=== PATIENT | female | born 1985 | race Caucasian/White ===

== ENCOUNTER 2016-11-09 09:37 | Inpatient (IN) | payer BC ==
[2016-11-09] MEDS ORDERED: METOCLOPRAMIDE 10 MG/2 ML VIAL IVP ONE (09:58)
[2016-11-09] MEDS ORDERED: NS 1,000 ML IV ONE (09:58)
[2016-11-09] MEDS ORDERED: KETOROLAC 30 MG/1 ML SDV IVP ONE (09:58)
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
[2016-11-09 10:16] LABS: % IMMATURE GRANULYOCYTES 0.8 % (0.0-1.1); ABSOLUTE IMMATURE GRANULOCYTES 0.18 10^3/uL (0.00-0.10); ADD DIFF? NO; ADD MORPH? NO; ADD SCAN? YES; ATYPICAL LYMPHOCYTE FLAG 0 (0-99); FRAGMENT RBC FLAG 0 (0-99); HEMATOCRIT 36.4 % (38.0-47.0); HEMOGLOBIN 12.4 g/dL (12.6-16.3); LEFT SHIFT FLG 40 (0-99); LIPEMIA HEMOLYSIS FLAG 90 (0-99); MEAN CELL HEMOGLOBIN 31.6 pg (27.9-34.1); MEAN CELL HEMOGLOBIN CONCENTR. 34.1 g/dL (32.4-36.7); MEAN CELL VOLUME 92.6 fL (81.5-99.8); MEAN PLATELET VOLUME 9.6 fL (8.7-11.7); PLATELET CLUMPS FLAG 20 (0-99); PLATELET COUNT 298 10^3/uL (150-400); RED BLOOD CELL COUNT 3.93 10^6/uL (4.18-5.33); RED CELL DISTRIBUTION WIDTH 13.8 % (11.5-15.2)
[2016-11-09 10:27] LABS: ANION GAP 17 mEq/L (8-16); CALCIUM 9.1 mg/dL (8.5-10.4); CARBON DIOXIDE 18 mEq/l (22-31); CHLORIDE 102 mEq/L (97-110); CREATININE 0.6 mg/dL (0.6-1.0); GLOMERULAR FILTRATION RATE > 60; GLUCOSE 109 mg/dL (70-100); POTASSIUM 4.2 mEq/L (3.5-5.2); SODIUM 137 mEq/L (134-144)
[2016-11-09 10:58] LABS: SCAN POSITIVE
[2016-11-09 11:03] LABS: PLATELET ESTIMATE ADEQUATE (ADEQ)
[2016-11-09] MEDS ORDERED: HYDROmorphONE/DILAUDID 1 MG/ML SYR IVP ONE (11:06)
[2016-11-09 12:39] LABS: CSF APPEARANCE CLOUDY (CLEAR)
[2016-11-09 12:39] LABS: CSF APPEARANCE CLOUDY (CLEAR)
[2016-11-09] MEDS ORDERED: cefTRIAXone 2 GM in D5W 50 ML IV ONE (12:41)
[2016-11-09 12:54] LABS: PROTEIN, CSF 234 mg/dL (12-60)
[2016-11-09 13:02] LABS: WBC, CSF 2259 /mm3 (0-5)
[2016-11-09] MEDS ORDERED: DEXAMETHASONE 10 MG/ML VIAL IVP ONE (13:13)
[2016-11-09 13:14] LABS: WBC, CSF 906 /mm3 (0-5)
[2016-11-09 13:22] LABS: CSF SUPERNATANT COLORLESS (COLORLESS)
[2016-11-09 13:22] LABS: CSF SUPERNATANT COLORLESS (COLORLESS)
[2016-11-09] MEDS ORDERED: ACETAMINOPHEN 325 MG TAB PO PRN (14:29)
[2016-11-09] MEDS ORDERED: ONDANSETRON DISINTEGRATING 4 MG TAB PO PRN (14:29)
[2016-11-09] MEDS ORDERED: ONDANSETRON 4 MG/2 ML VIAL IVP PRN (14:29)
[2016-11-09] MEDS ORDERED: VANCOMYCIN HCL/NORMAL SALINE 250 ML IV ONE (15:00)
[2016-11-09] MEDS ORDERED: VANCOMYCIN 1 GM/NS 250 ML BAG IV ONE (15:15)
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
[2016-11-09] MEDS: PROMETHAZINE HCL 25 MG/ML INJ IVP PRN (18:31)
[2016-11-09] MEDS: DEXAMETHASONE 4 MG/ML VIAL IVP SCH (18:31)
[2016-11-09] MEDS ORDERED: HALOPERIDOL LACT 5 MG/ML INJ IV ONE (20:45)
[2016-11-10] MEDS ORDERED: HALOPERIDOL LACT 5 MG/ML INJ IV ONE (01:00)
[2016-11-10] MEDS: cefTRIAXone 2 GM in D5W 50 ML IV SCH ×2 (01:08→13:58)
[2016-11-10] MEDS: DEXAMETHASONE 4 MG/ML VIAL IVP SCH ×5 (01:08→23:43)
[2016-11-10] MEDS: NS 1,000 ML IV SCH ×2 (01:09→03:43)
[2016-11-10] MEDS: VANCOMYCIN HCL/NORMAL SALINE 250 ML IV SCH ×2 (03:21→16:00)
[2016-11-10] MEDS: HYDROmorphONE/DILAUDID 1 MG/ML SYR IVP PRN ×5 (03:39→23:43)
--- NOTE | 2016-11-10 05:12 | CPEKG ---
Heart Rate: 59 RR Interval: 1017 P-R Interval: 172 QRSD Interval: 94 QT Interval: 420 QTC Interval: 416 P [place]: 60 QRS [place]: 92 T Wave [place]: -51 EKG Severity - ABNORMAL ECG - EKG Impression: SINUS ARRHYTHMIA, RATE 43-66 EKG Impression: BORDERLINE RIGHT AXIS DEVIATION EKG Impression: NONSPECIFIC T ABNORMALITIES, INFERIOR LEADS EKG Impression: . Electronically Signed By: Dominguez Hankins 10-Nov-2016 05:47:43
[2016-11-10 06:55] LABS: % IMMATURE GRANULYOCYTES 0.8 % (0.0-1.1); ADD DIFF? NO; ADD MORPH? NO; ADD SCAN? YES; ATYPICAL LYMPHOCYTE FLAG 0 (0-99); FRAGMENT RBC FLAG 0 (0-99); HEMATOCRIT 33.3 % (38.0-47.0); HEMOGLOBIN 11.4 g/dL (12.6-16.3); LIPEMIA HEMOLYSIS FLAG 90 (0-99); MEAN CELL HEMOGLOBIN 31.1 pg (27.9-34.1); MEAN CELL HEMOGLOBIN CONCENTR. 34.2 g/dL (32.4-36.7); PLATELET CLUMPS FLAG 0 (0-99); PLATELET COUNT 240 10^3/uL (150-400); RED BLOOD CELL COUNT 3.66 10^6/uL (4.18-5.33); RED CELL DISTRIBUTION WIDTH 13.5 % (11.5-15.2)
[2016-11-10 07:01] LABS: LEFT SHIFT FLG 140 (0-99)
[2016-11-10 07:05] LABS: ANION GAP 11 mEq/L (8-16); CALCIUM 7.9 mg/dL (8.5-10.4); CARBON DIOXIDE 20 mEq/l (22-31); CHLORIDE 104 mEq/L (97-110); CREATININE 0.4 mg/dL (0.6-1.0); GLOMERULAR FILTRATION RATE > 60; GLUCOSE 130 mg/dL (70-100); POTASSIUM 3.5 mEq/L (3.5-5.2); SODIUM 135 mEq/L (134-144)
[2016-11-10 07:56] LABS: SCAN POSITIVE
[2016-11-10 07:59] LABS: PLATELET ESTIMATE ADEQUATE (ADEQ)
[2016-11-10 09:07] LABS: ALBUMIN 3.5 g/dL (3.5-5.0); BILIRUBIN,TOTAL 0.4 mg/dL (0.1-1.4); BILIRUBIN-CONJUGATED 0.4 mg/dL (0.0-0.5); TOTAL PROTEIN 6.1 g/dL (6.3-8.2)
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
[2016-11-10] MEDS: ENOXAPARIN 40 MG/0.4 ML SYR SC SCH (09:28)
--- NOTE | 2016-11-10 09:45 | HOSPPROG ---
Hospitalist Progress Note Assessment/Plan: 31 yo F w asplenia here w pneumococcal meningitis meningitis: continue vanc.ceftriaxone (2g q 12) suspect will be ceftriaxone sens; can dc droplet precautions as not meningococcus aplenia: needs vaccines timing per ID bacteremia: source is meningitis repeat cx today proph: lmwh encephalopathy: attributable to meningitis dispo: inpt risk: high Subjective: case d/w rosario olguin and krishna. remains encephalopathic. some purposeful movement Objective: Vital Signs Temp Pulse Resp BP Pulse Ox 37 C 54 L 18 100/66 98 11/10/16 08:00 11/10/16 08:00 11/10/16 08:00 11/10/16 08:00 11/10/16 08:00 Laboratory Results 11/10/16 06:40 11/10/16 06:40 11/09/16 11/10/16 11/11/16 05:59 05:59 05:59 Intake Total 2866 Output Total 1675 Balance 1191 - Physical Exam Constitutional: no apparent distress, other (not following commands) Eyes: PERRL, anicteric sclera Ears, Nose, Mouth, Throat: moist mucous membranes, hearing normal Cardiovascular: regular rate and rhythym, no murmur, rub, or gallop Respiratory: no respiratory distress, no rales or rhonchi Gastrointestinal: normoactive bowel sounds, soft, non-tender abdomen Genitourinary: no bladder fullness, no renal bruits Skin: warm, normal color Musculoskeletal: full muscle strength Neurologic: other (encephalopathic. withdraws to pain), No AAOx3 Psychiatric: interacting appropriately, not anxious ICD10 Worksheet Patient Problems: Problems Problem Status Onset Meningitis Acute (normal spontaneous vaginal delivery) Acute Rubella non-immune status Acute
[2016-11-10] MEDS: PROMETHAZINE HCL 25 MG/ML INJ IVP PRN (10:38)
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
[2016-11-10] MEDS ORDERED: cefTRIAXone 2 GM in D5W 50 ML IV SCH (22:00)
[2016-11-11] MEDS: cefTRIAXone 2 GM in D5W 50 ML IV SCH ×2 (01:10→13:21)
[2016-11-11] MEDS: VANCOMYCIN HCL/NORMAL SALINE 250 ML IV SCH (03:37)
[2016-11-11] MEDS: DEXAMETHASONE 4 MG/ML VIAL IVP SCH ×4 (05:47→23:40)
[2016-11-11 06:33] LABS: % IMMATURE GRANULYOCYTES 1.1 % (0.0-1.1); ABSOLUTE IMMATURE GRANULOCYTES 0.22 10^3/uL (0.00-0.10); ABSOLUTE NRBC COUNT 0.02 10^3/uL (0-0.01); ADD DIFF? NO; ADD MORPH? NO; ADD SCAN? NO; ATYPICAL LYMPHOCYTE FLAG 10 (0-99); FRAGMENT RBC FLAG 0 (0-99); HEMATOCRIT 32.7 % (38.0-47.0); HEMOGLOBIN 11.1 g/dL (12.6-16.3); LEFT SHIFT FLG 20 (0-99); LIPEMIA HEMOLYSIS FLAG 90 (0-99); MEAN CELL HEMOGLOBIN 30.8 pg (27.9-34.1); MEAN CELL HEMOGLOBIN CONCENTR. 33.9 g/dL (32.4-36.7); MEAN CELL VOLUME 90.8 fL (81.5-99.8); MEAN PLATELET VOLUME 10.6 fL (8.7-11.7); NRBC-AUTO% 0.1 % (0.0-0.2); PLATELET CLUMPS FLAG 0 (0-99); PLATELET COUNT 277 10^3/uL (150-400); RED CELL DISTRIBUTION WIDTH 14.1 % (11.5-15.2)
[2016-11-11 07:02] LABS: ANION GAP 9 mEq/L (8-16); CALCIUM 8.4 mg/dL (8.5-10.4); CARBON DIOXIDE 20 mEq/l (22-31); CHLORIDE 108 mEq/L (97-110); CREATININE 0.5 mg/dL (0.6-1.0); GLOMERULAR FILTRATION RATE > 60; GLUCOSE 121 mg/dL (70-100); POTASSIUM 3.8 mEq/L (3.5-5.2); SODIUM 137 mEq/L (134-144)
[2016-11-11] MEDS: ENOXAPARIN 40 MG/0.4 ML SYR SC SCH (08:58)
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
--- NOTE | 2016-11-11 09:24 | HOSPPROG ---
Hospitalist Progress Note Assessment/Plan: 31 yo F w asplenia here w pneumococcal meningitis meningitis: continue vanc.ceftriaxone (2g q 12) ceftriaxone sens, pcn resistant strep pneumo dc vanc can dc droplet precautions as not meningococcus clinically improved today aplenia: needs vaccines timing per ID bacteremia: source is meningitis repeat cx neg thus far likely picc 11/12 4 weeks abx proph: lmwh encephalopathy: attributable to meningitis dispo: inpt risk: high Subjective: case d/w dr keller. alert today Objective: Vital Signs Temp Pulse Resp BP Pulse Ox 36.8 C 54 L 15 106/70 97 11/11/16 08:00 11/11/16 08:00 11/11/16 08:00 11/11/16 07:00 11/11/16 08:00 Laboratory Results 11/11/16 05:45 11/11/16 05:45 11/10/16 11/11/16 11/12/16 05:59 05:59 05:59 Intake Total 2866 2197 Output Total 1675 1650 Balance 1191 547 - Physical Exam Constitutional: no apparent distress, appears nourished Eyes: PERRL, anicteric sclera Ears, Nose, Mouth, Throat: moist mucous membranes, hearing normal Cardiovascular: regular rate and rhythym, no murmur, rub, or gallop Respiratory: no respiratory distress, no rales or rhonchi, clear to auscultation Gastrointestinal: normoactive bowel sounds, soft, non-tender abdomen Genitourinary: no bladder fullness, No quinn in urethra Skin: warm, normal color Musculoskeletal: full muscle strength, no muscle tenderness Neurologic: AAOx3, sensation intact bilaterally Psychiatric: interacting appropriately, not anxious Lymph, Heme, Immunologic: no cervical LAD, no supraclavicular LAD ICD10 Worksheet Patient Problems: Problems Problem Status Onset Meningitis Acute (normal spontaneous vaginal delivery) Acute Rubella non-immune status Acute
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
[2016-11-11] MEDS: HYDROmorphONE/DILAUDID 1 MG/ML SYR IVP PRN (13:38)
[2016-11-11] MEDS: NS 1,000 ML IV SCH ×2 (15:30→19:58)
[2016-11-12] MEDS: cefTRIAXone 2 GM in D5W 50 ML IV SCH ×2 (01:18→14:07)
[2016-11-12 05:01] LABS: % IMMATURE GRANULYOCYTES 2.2 % (0.0-1.1); ABSOLUTE IMMATURE GRANULOCYTES 0.26 10^3/uL (0.00-0.10); ABSOLUTE NRBC COUNT 0.05 10^3/uL (0-0.01); ADD DIFF? NO; ADD MORPH? NO; ADD SCAN? NO; ATYPICAL LYMPHOCYTE FLAG 20 (0-99); FRAGMENT RBC FLAG 10 (0-99); HEMATOCRIT 32.3 % (38.0-47.0); HEMOGLOBIN 10.9 g/dL (12.6-16.3); LEFT SHIFT FLG 20 (0-99); LIPEMIA HEMOLYSIS FLAG 80 (0-99); MEAN CELL HEMOGLOBIN 30.7 pg (27.9-34.1); MEAN CELL HEMOGLOBIN CONCENTR. 33.7 g/dL (32.4-36.7); MEAN PLATELET VOLUME 10.7 fL (8.7-11.7); NRBC-AUTO% 0.4 % (0.0-0.2); PLATELET CLUMPS FLAG 10 (0-99); PLATELET COUNT 320 10^3/uL (150-400); RED BLOOD CELL COUNT 3.55 10^6/uL (4.18-5.33); RED CELL DISTRIBUTION WIDTH 14.1 % (11.5-15.2)
[2016-11-12 05:18] LABS: CHLORIDE 110 mEq/L (97-110)
[2016-11-12 05:20] LABS: ANION GAP 8 mEq/L (8-16); CALCIUM 8.3 mg/dL (8.5-10.4); CARBON DIOXIDE 21 mEq/l (22-31); CREATININE 0.5 mg/dL (0.6-1.0); GLOMERULAR FILTRATION RATE > 60; GLUCOSE 136 mg/dL (70-100); SODIUM 139 mEq/L (134-144)
[2016-11-12] MEDS: DEXAMETHASONE 4 MG/ML VIAL IVP SCH ×3 (05:23→18:20)
[2016-11-12] MEDS ORDERED: ALTEPLASE 2 MG VIAL IVP PRN (08:58)
--- NOTE | 2016-11-12 09:04 | HOSPPROG ---
Hospitalist Progress Note Assessment/Plan: 31 yo F w asplenia here w pneumococcal meningitis meningitis: continue vanc.ceftriaxone (2g q 12) ceftriaxone sens, pcn resistant strep pneumo dc vanc can dc droplet precautions as not meningococcus clinically improved today dc steroids after 4 days, which will be mid day 11/13 aplenia: needs vaccines timing per ID CN paalsy: neuro to see bacteremia: source is meningitis repeat cx neg thus far likely picc 11/12 14 days abx proph: lmwh encephalopathy: attributable to meningitis dispo: inpt risk: high Subjective: case d/w dr keller. new R CN palsy w double vision Objective: Vital Signs Temp Pulse Resp BP Pulse Ox 36.7 C 54 L 16 104/70 95 11/12/16 08:00 11/12/16 08:00 11/12/16 08:00 11/12/16 08:00 11/12/16 08:00 Laboratory Results 11/12/16 04:51 11/12/16 04:51 11/11/16 11/12/16 11/13/16 05:59 05:59 05:59 Intake Total 2197 3125 Output Total 1650 2750 Balance 547 375 - Physical Exam Constitutional: no apparent distress, appears nourished Eyes: PERRL, anicteric sclera Ears, Nose, Mouth, Throat: moist mucous membranes, hearing normal Cardiovascular: regular rate and rhythym, no murmur, rub, or gallop Respiratory: no respiratory distress, no rales or rhonchi Gastrointestinal: normoactive bowel sounds, soft, non-tender abdomen Genitourinary: quinn in urethra Skin: warm, normal color Musculoskeletal: full muscle strength, no muscle tenderness Neurologic: AAOx3, sensation intact bilaterally Psychiatric: interacting appropriately, not anxious Lymph, Heme, Immunologic: no cervical LAD ICD10 Worksheet Patient Problems: Problems Problem Status Onset Meningitis Acute (normal spontaneous vaginal delivery) Acute Rubella non-immune status Acute
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
[2016-11-12] MEDS: ENOXAPARIN 40 MG/0.4 ML SYR SC SCH ×2 (09:38→09:47)
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
[2016-11-12] MEDS ORDERED: GADOBUTROL 10 ML VIAL IVP ONE (16:14)
--- NOTE | 2016-11-12 19:14 | NEUROPROG ---
Assessment: MRI showed probable stroke to explain her vision issues. I ordered stroke evaluation but will hold on beginning aspirin to ensure her stroke mechanism is not from endocarditis (pt with infection, aspirin does not need to be started if endocarditis is the mechanism of stroke). Objective: Vital Signs Temp Pulse Resp BP Pulse Ox 36.5 C 40 L 14 121/70 H 96 11/12/16 19:00 11/12/16 19:00 11/12/16 19:00 11/12/16 19:00 11/12/16 19:00 Laboratory Results 11/12/16 04:51 11/12/16 04:51 11/11/16 11/12/16 11/13/16 05:59 05:59 05:59 Intake Total 2197 3125 Output Total 1650 2640 Balance 547 375 Allergies/Adverse Reactions: codeine Allergy (Mild, Verified 11/09/16 09:45) GI upset
[2016-11-12] MEDS ORDERED: IOPAMIDOL (ISOVUE 370) 100 ML BTL IV ONE (19:43)
[2016-11-13] MEDS: cefTRIAXone 2 GM in D5W 50 ML IV SCH ×2 (00:12→14:04)
[2016-11-13] MEDS: DEXAMETHASONE 4 MG/ML VIAL IVP SCH ×3 (00:12→11:43)
[2016-11-13 02:30] LABS: HEMOGLOBIN A1C 5.3 % (4.0-6.0)
[2016-11-13 07:26] LABS: CHOLESTEROL 164 mg/dL (140-200); CHOLESTEROL/HDL RATIO 4.43 RATIO (1.00-4.44); HIGH DENSITY LIPOPROTEIN 37 mg/dL (40-80); LDL/HDL RATIO 2.84 RATIO (1.00-3.22); LOW DENSITY LIPOPROTEIN 105 mg/dL (70-100); NON-HIGH DENSITY LIPOPROTEIN 127 mg/dL (90-129); TRIGLYCERIDE 111 mg/dL (35-135); VERY LOW DENSITY LIPOPROTEINS 22 mg/dL (8-25)
[2016-11-13] MEDS: ENOXAPARIN 40 MG/0.4 ML SYR SC SCH (10:24)
--- NOTE | 2016-11-13 13:12 | NEUROPROG ---
Assessment: INTERVAL HISTORY: Patient doing well. Double vision resolved. Still with mild holocranial headache. A little unsteady with walking still. No new symptoms, including weakness, sensory changes, speech/language disturbance, neck pain, photophobia. Eager to go home. EXAM: VS reviewed in EMR NECK: supple, nontender, no meningismus MS: awake, alert, oriented to all spheres. Speech nondysarthric. No language disturbance. Follows commands. Attends to both sides. Memory grossly intact. Good fund of knowledge. Mood euthymic. CN: pupils 5mm round reactive. VFF. Primary gaze centered. Full ocular motility. No skew. Facial sensation preserved. Face symmetric. Palatoglossal movements intact. Shoulder shrug strong. MOTOR: reduced bulk throughout, normal tone. No adventitial movements. Full power throughout. SENSORY: intact LT/PP throughout and symmetric wo extinction. COORD: no ataxia FN/HS. Jin preserved. REFLEX: plantars down, no clonus. DTRs 2/4. GAIT: deferred to PT safety eval DATA: Labs, imaging and physiologic data reviewed in EMR IMPRESSION AND RECOMMENDATIONS: // BACTERIAL MENINGITIS - IMPROVING // SEPSIS // ISCHEMIC STROKES - VASCULITIC FROM INFECTION // DIPLOPIA - RESOLVED Patient with CSF culture demonstrated Strep. pneumo meningitis with blood cultures positive for Strep. pneumo as well. On appropriate antibiotic therapy as directed by our ID colleagues. Also on steroids. Diplopia likely from cranial neuropathy from meningeal irritation. Strokes are juxtacortical and cerebellar in the left hemisphere. Vascular imaging in the form of CTA head/neck show no vascular caliber changes. MRI did not show enhancement of vascular lumen or the lesions. Location and size of stroke and clinical syndrome are compelling for vasculitic infarcts from infection/inflammation of the leptomeningeal vessels. Still needs TTE to screen for septic valvular vegetation, though, particularly given positive blood cultures - therapy is still going to be antibiotics and steroids, but may change duration of therapy. Would continue steroids for duration of antibiotic therapy as a measure to dampen inflammation that was likely culprit in vasculitic infarcts. She is otherwise doing very well. She does not need antithrombotic, statin, etc... given the infarcts were from an infectious etiology, which is being addressed as per above. Discussed notifying staff of any new deficits. Will sign off. Please notify of any clinical changes or concerns. 45 mins CC time. Patient with vasculitic infarcts and meningitis/sepsis - improving, though, still under investigation and close clinical monitoring. Objective: Vital Signs Temp Pulse Resp BP Pulse Ox 36.7 C 40 L 14 107/65 96 11/13/16 05:55 11/13/16 05:55 11/13/16 05:55 11/13/16 05:55 11/13/16 05:55 Laboratory Results 11/12/16 04:51 11/12/16 04:51 11/12/16 11/13/16 11/14/16 05:59 05:59 05:59 Intake Total 3125 55 Output Total 2750 Balance 375 55 Allergies/Adverse Reactions: codeine Allergy (Mild, Verified 11/09/16 09:45) GI upset
--- NOTE | 2016-11-13 13:42 | HOSPPROG ---
Hospitalist Progress Note Assessment/Plan: 31 yo F w asplenia here w pneumococcal meningitis meningitis: continue vanc.ceftriaxone (2g q 12) ceftriaxone sens, pcn resistant strep pneumo dc vanc can dc droplet precautions as not meningococcus clinically improved today dc steroids after 4 days, which will be mid day 11/13 aplenia: needs vaccines timing per ID CN palsy: resolved felt secondary to CN irritation lacunar infarcts: most likely vasculitic infarcts but need to rule out valve vegetation as source of embolism bacteremia: source is meningitis repeat cx neg thus far likely picc 11/12 14 days abx unless found to have SBE proph: lmwh encephalopathy: attributable to meningitis dispo: inpt risk: high Subjective: case d/w dr sosa. diplopia resolved. MRI w lacunar infarcts ; neurovascular imaging w no evidence large vessel atherosclerotic disease Objective: Vital Signs Temp Pulse Resp BP Pulse Ox 36.7 C 40 L 14 107/65 96 11/13/16 05:55 11/13/16 05:55 11/13/16 05:55 11/13/16 05:55 11/13/16 05:55 Laboratory Results 11/12/16 04:51 11/12/16 04:51 11/12/16 11/13/16 11/14/16 05:59 05:59 05:59 Intake Total 3125 55 Output Total 2750 Balance 375 55 - Physical Exam Constitutional: no apparent distress, appears nourished Eyes: PERRL, anicteric sclera Ears, Nose, Mouth, Throat: moist mucous membranes, hearing normal Cardiovascular: regular rate and rhythym, no murmur, rub, or gallop Respiratory: no respiratory distress, no rales or rhonchi Gastrointestinal: normoactive bowel sounds, soft, non-tender abdomen Genitourinary: no bladder fullness, No quinn in urethra Skin: warm, normal color Musculoskeletal: full muscle strength, no muscle tenderness Neurologic: AAOx3 ICD10 Worksheet Patient Problems: Problems Problem Status Onset Meningitis Acute (normal spontaneous vaginal delivery) Acute Rubella non-immune status Acute
--- NOTE | 2016-11-13 14:44 | ECHO ---
[id number] + + [address] : : [place] [address] : : [phone] + + Adult Echocardiographic Report + -------+ :Name: Елена KRAUSthad Date: 11/13/2016 08:08 AM : : Hospital Admission Number: [id number] Locati on: 396: :: 1985 Gender: Female Height: 63 in : :Age: 31 yrs Race: WH Weight: 110 lb : :Reason For Study: Ischemic storke : : BSA: 1.5 meter s2 : + -------+ MMode/2D Measurements \T\ Calculations IVSd: 0.55 cm LVIDd: 5.0 cm FS: 44.6 % Ao root diam: LVPWd: 0.77 cm LVIDs: 2.8 cm EDV(Teich): 2.8 cm 120.9 ml LA dimension: ESV(Teich): 3.2 cm 29.5 ml EF(Teich): 75.6 % LVLd ap4: 7.8 cm SV(MOD-sp4): EDV(MOD-sp4): 67.0 ml 92.0 ml LVLs ap4: 5.8 cm ESV(MOD-sp4): 25.0 ml EF(MOD-sp4): 72.8 % Normal Measurement Values: + + :LVIDd (3.5-5.7cm) IVSd (0.6-1.1cm) LVPWd (0.6-1.1cm) Aortic Root (2.0-3.7cm)Left Atrium (1.5-4.0cm): :LV Vol(d) (76-115ml) LV Vol(s) (29-48ml) Ejec Fraction (50-65%)PV Juan J (0.6- 1.2m/s) TV Juan J (0.4-1.0m/s) : :MV E Juan J (0.8-1.0m/s)MV A Juan J (0.3-1.0m/s)LVOT Juan J (0.7-1.2m/s) Asc Ao Juan J ( 0.9-1.8m/s) : + + Doppler Measurements \T\ Calculations MV E max juan j: 150.1 cm/sec Ao V2 max: 133.0 cm/sec TR max juan j: 213.1 cm/sec MV A max juan j: 49.9 cm/sec Ao max P.1 mmHg TR max P.2 mmHg MV E/A: 3.0 RAP systole: 5.0 mmHg RVSP(TR): 23.2 mmHg Left Ventricle The left ventricle is normal in size. There is normal left ventricular wall thickness. Left ventricular systolic function is normal. Ejection Fraction = 65-70%. No regional wall motion abnormalities noted. Right Ventricle The right ventricle is normal in size and function. Atria The left atrial size is normal. Right atrial size is normal. Injection of contrast documented no interatrial shunt. Mitral Valve The mitral valve is normal in structure and function. There is no evidence of mitral valve prolapse. There is no mitral valve stenosis. There is trace mitral regurgitation. Tricuspid Valve Normal tricuspid valve. There is mild tricuspid regurgitation. Right ventricular systolic pressure is normal. Aortic Valve The aortic valve is trileaflet. The aortic valve opens well. There is no aortic stenosis. There is no aortic insufficiency. Pulmonic Valve The pulmonic valve is normal in structure and function. Trace pulmonic valvular regurgitation. Great Vessels The aortic root is normal size. Pericardium/Pleural There is no pericardial effusion. Conclusion A complete two-dimensional transthoracic echocardiogram was performed (2D, M-mode, Doppler and color flow Doppler). Normal LV size and wall motion. Left ventricular systolic function is normal. Ejection Fraction = 65-70%. Injection of contrast documented no interatrial shunt. There is trace mitral regurgitation. There is mild tricuspid regurgitation. Right ventricular systolic pressure is normal. Trace pulmonic valvular regurgitation. Final Reading Physician: Eloina Roberson signed on 11/13/2016 02:42 PM Ordering Physician: Robi Byers Performed By: Dayan Hinton, [facility]
--- NOTE | 2016-11-13 16:13 | PDIAF ---
- Diagnosis Diagnosis: meningitis Code Status: Full Code - Medication Management Discharge Medications: Medications to Continue on Transfer Acetaminophen [Tylenol 325mg (*)] 650 mg PO Q6 PRN 11/09/16 [Last Taken Unknown] cefTRIAXone [Rocephin] 2 gm IV Q12H vial 11/13/16 [Last Taken Unknown] Discharge Medications: Refer to the Discharge Home Medication list for PRN reason. - Orders Services needed: Home Care, Registered Nurse Home Care Face to Face: I certify that this patient was under my care and that I had the required [id number] encounter meeting the encounter requirements on the discharge day. My findings support the fact that the patient is homebound as defined in CMS Chapter 7 Medicare Benefits Manual 30.1.1, The condition of the patient is such that there exists a normal inability to leave home and consequently, leaving home would require a considerable and taxing effort. - Follow Up Care Current Providers and Referrals: NONE *PRIMARY CARE P,. [Unknown] - As per Instructions
--- NOTE | 2016-11-13 16:19 | PDIAF ---
- Diagnosis Diagnosis: meningitis Code Status: Full Code - Medication Management Discharge Medications: Medications to Continue on Transfer Acetaminophen [Tylenol 325mg (*)] 650 mg PO Q6 PRN 11/09/16 [Last Taken Unknown] cefTRIAXone [Rocephin] 2 gm IV Q12H vial 11/13/16 [Last Taken Unknown] Alf Antibiotics: Ceftriaxone 2 g IV q12 hours [employer]st Antibiotic Stop Date: 11/24/16 Discharge Medications: Refer to the Discharge Home Medication list for PRN reason. PICC Care - Routine: Yes - Orders Services needed: Home Care, Registered Nurse Home Care Face to Face: I certify that this patient was under my care and that I had the required [id number] encounter meeting the encounter requirements on the discharge day. My findings support the fact that the patient is homebound as defined in CMS Chapter 7 Medicare Benefits Manual 30.1.1, The condition of the patient is such that there exists a normal inability to leave home and consequently, leaving home would require a considerable and taxing effort. - Labs/Radiology CBC Date: 11/15/16 (weekly q Wed) CMP Date: 11/15/16 (weekly q Wed) Call or Fax Lab and Imaging Results to: Dr. Cesar [phone] - Follow Up Care Current Providers and Referrals: NONE *PRIMARY CARE P,. [Unknown] - As per Instructions Vicky Cesar MD [Medical Doctor] - 11/22/16 11:00 am
--- NOTE | 2016-11-13 16:31 | GDS ---
[f rep st] DISCHARGE SUMMARY DISCHARGE DIAGNOSES: 1. Pneumococcal meningitis. 2. Pneumococcal bacteremia. 3. Asplenia. 4. 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 CONSULT: 1. Infectious Disease. 2. Neurology. HOSPITAL COURSE: Please see admission history and physical by Dr. Anupam Vasquez. The patient pres ented with fever, myalgias. She had an LP which showed leukocytosis left shift, low glucose, high p rotein consistent with meningitis. Gram stain showed gram-positive cocci in pairs consist with pneu mococcus. She was initially treated with multiple drug regimens but ultimately settled on ceftriaxo ne 2 g q.12h. The patient developed a cranial nerve 6th palsy on the that had resolved by the . She had a brain MRI showing these aforementioned multifocal CVAs. She had negative surface e cho. Blood cultures were clear. She has been afebrile. She has not had peripheral embolic phenome non. On exam, this is felt consistent with vasculitis of her leptomeningeal vessels. She has outpa tient followup to complete a 14 day course of antibiotics as well as followup transthoracic echocard iogram. /[id number]/MODL
--- NOTE | 2016-11-13 19:31 | PCMIDPN ---
Assessment/Plan: Assessment/Plan: * Streptococcus pneumoniae bacteremia/meningitis with underlying asplenia: Significant clinical improvement. Diplopia now resolved. Neurology consultation reviewed with radiographic findings felt to be due to ischemic changes from meningeal inflammatory change. Transthoracic echocardiogram does not show evidence of valve dysfunction or overt endocarditis. Suspect endocarditis is of low likelihood given rapid clearing of blood cultures and that MRI findings not typical for embolic phenomena. Plan 2 weeks of ceftriaxone post clearance of blood cultures. Plans for discharge later this evening after ceftriaxone administered with home health to start in a.m.. Will have follow-up with our office next week by Dr. Cesar. Plan weekly CBC and CMP while on therapy. Plan repeat echocardiogram as outpatient to ensure no evidence of valvular changes that evolve over time. 11/13/16 19:27 Subjective: Patient feels significantly improved. No further double vision. Mild headache present. Eager to go home. Objective: Vital Signs Temp Pulse Resp BP Pulse Ox 36.5 C 37 L 18 127/81 H 97 11/13/16 16:00 11/13/16 16:00 11/13/16 16:00 11/13/16 16:00 11/13/16 16:00 Laboratory Results 11/12/16 04:51 11/12/16 04:51 11/12/16 11/13/16 11/14/16 05:59 05:59 05:59 Intake Total 3125 55 50 Output Total 2750 Balance 375 55 50 Ceftriaxone # 5 Blood cultures 11/10/2016 no growth MRI findings reviewed with Radiology today. Transthoracic echocardiogram without significant valvular dysfunction or evidence of vegetation - Physical Exam General Appearance: alert, no apparent distress EENT: No conjunctival petechiae Respiratory: lungs clear, No respiratory distress Neck: No meningismus Cardiac/Chest: regular rate, rhythm, No systolic murmur Abdomen: non-tender, No distended Skin: No embolic lesions ICD10 Worksheet Patient Problems: Problems Problem Status Onset Meningitis Acute (normal spontaneous vaginal delivery) Acute Rubella non-immune status Acute
[2016-11-13 20:23] VITALS: BP 132/83; PULSE 38; RESP 16; TEMP 98.1; O2SAT 96
[2016-11-13] MEDS ORDERED: cefTRIAXone 2 GM in D5W 50 ML IV SCH (20:30)
[2016-11-14 10:18] LABS: HSV 1 PCR, CSF Negative (Negative); HSV 2 PCR, CSF Negative (Negative)
== END 2016-11-13 21:25 | disposition home health service (06) | DRG 94 ==
LOC: OBSVTOIN 13:40 → F2N 15:30 → F3E 11-11 14:00
PROVIDERS: ADMIT Internal Medicine; ATTEND Internal Medicine
PROC: 009U3ZX Drainage of Spinal Canal, Percutaneous Approach, Diagnostic (ICD-10-PCS; principal; 2016-11-09)
PROC: 3E03329 Introduction of Other Anti-infective into Peripheral Vein, Percutaneous Approach (ICD-10-PCS; 2016-11-09)
PROC: 02HV33Z Insertion of Infusion Device into Superior Vena Cava, Percutaneous Approach (ICD-10-PCS; 2016-11-12)
DX: G00.1 Pneumococcal meningitis (principal); G00.9 Bacterial meningitis, unspecified; R78.81 Bacteremia; B95.3 Streptococcus pneumoniae as the cause of diseases classified elsewhere; I63.9 Cerebral infarction, unspecified; H51.21 Internuclear ophthalmoplegia, right eye; I67.7 Cerebral arteritis, not elsewhere classified; G04.90 Encephalitis and encephalomyelitis, unspecified; G43.909 Migraine, unspecified, not intractable, without status migrainosus; Z16.11 Resistance to penicillins; Z90.5 Acquired absence of kidney; Z90.81 Acquired absence of spleen; Z28.3 Underimmunization status
CPT/HCPCS: 87529-90; 92523-GN; 96365; 97116-GP; 97161-GP; A9585; C1751; J0696; J1100; J1170; J1200; J1650; J1885; J2405; J2550; J2765; J3370; Q9967

== ENCOUNTER 2016-11-24 07:03 | Day surgery (SDC) | payer BC, OTHER ==
--- NOTE | 2016-11-23 13:28 | PDCARPN ---
Cardiology Progress Note Chief Complaint: 31 y/o woman with recent meningitis and echo concerning for possible SBE of tricuspid valve. AMANDEEP ordered by ID MD to assess for valvular vegetation and determine length of antibiotics. Assessment/Plan: Assessment: 1)recent meningitis 2)abnormal transthoracic echo with possible TV SBE and trivial to mild TR. Plan: 1)AMANDEEP with IV sedation by Anesthesia service. 11/23/16 13:27 Reviewed/Discussed With: other (ID-Dr. Vicky Cesar.) ICD10 Worksheet Patient Problems: Problems Problem Status Onset Meningitis Acute (normal spontaneous vaginal delivery) Acute Rubella non-immune status Acute
[2016-11-24] MEDS ORDERED: NS 1,000 ML IV ONE (07:05)
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
--- NOTE | 2016-11-24 08:22 | PDANEPAE ---
ANE History of Present Illness Patient presents for AMANDEEP ANE Past Medical History - Pulmonary History Hx Oxygen in Use at Home: No Hx Sleep Apnea: No - Endocrine History Hx Diabetes: No ANE Review of Systems - Exercise capacity Exercise capacity: >=4 METS ANE Patient History - Allergies Allergies/Adverse Reactions: codeine Allergy (Mild, Verified 11/09/16 09:45) GI upset - Home Medications Home Medications: Advil 400 mg PO BID 11/24/16 [Last Taken 11/23/16 16:00] Heparin 500 unit IV BID 11/24/16 [Last Taken 11/23/16 21:00] Nystatin Susp TP 11/24/16 [Last Taken Unknown] Rocephin 1 gm (Premix) 1 g IV Q12 11/24/16 [Last Taken 11/23/16 21:00] Tylenol 650 mg PO BID 11/24/16 [Last Taken Unknown] - NPO status NPO Status: no food or drink >8 hours - Anes Hx Anes Hx: no prior problems - Smoking Hx Smoking Status: Never smoked ANE Labs/Vital Signs - Vital Signs Height: 160 cm Weight: 49.9 kg ANE Physical Exam - Airway Neck exam: FROM Mallampati Score: Class 2 Mouth exam: normal dental/mouth exam - Pulmonary Pulmonary: no respiratory distress - Cardiovascular Cardiovascular: regular rate and rhythym - ASA Status ASA Status: II ANE Anesthesia Plan Anesthesia Plan: GA with mask (RBA discussed)
[2016-11-24] MEDS ORDERED: LIDOCAINE 2% 100 MG/5 ML SYR ONE (08:24)
[2016-11-24] MEDS ORDERED: PROPOFOL 200 MG/20 ML VIAL ONE ×2 (08:24→08:36)
--- NOTE | 2016-11-24 08:46 | SOAPPROG ---
SOAP Progress Note Assessment/Plan: Assessment: 1)recent meningitis 2)abnormal transthoracic echo with possible TV SBE and trivial to mild TR. Plan: 1)AMANDEEP with IV sedation by Anesthesia service. 11/23/16 13:27 ICD10 Worksheet Patient Problems: Problems Problem Status Onset Meningitis Acute (normal spontaneous vaginal delivery) Acute Rubella non-immune status Acute
--- NOTE | 2016-11-24 08:51 | POSTANESTH ---
Post Anesthetic Evaluation Cardiovascular Status: Normal, Stable Respiratory Status: Normal, Stable Level of Consciousness/Mental Status: Can Participate in Eval Pain Control: Adequate, Prn Tx Ordered Nausea/Vomiting Control: Adequate, Prn Tx Ordered Complications Possibly Related to Anesthesia: None Noted
--- NOTE | 2016-11-24 11:46 | ECHO ---
[id number] + + [address] : : [facility] [address] : : [phone] + + Transesophageal Echocardiographic Report + -------+ :Name: Titi KRAUS Date: 11/24/2016 08:27 AM : : Hospital Admission Number: [id number] Locati on: [facility]: :: 1985 Gender: Female : :Age: 31 yrs Race: WH : :Reason For Study: Eval Valves : :History: Eval for SBE : + -------+ Left Ventricle The left ventricular ejection fraction is normal. LVEF =60% with normal wall motions. Right Ventricle Normal RV size and RVEF. Atria Injection of contrast documented no interatrial shunt. The interatrial septum is intact with no evidence for an atrial septal defect. No left atrial mass or thrombus visualized. No thrombus is detected in the left atrial appendage. Mitral Valve The mitral valve is normal in structure and function. There is no evidence of mitral valve prolapse. There is no mitral valve stenosis. There is trace mitral regurgitation. Tricuspid Valve The AMANDEEP revealed redundancy with the tricuspid valve structure. There is evidence of redundant tricuspid valve chordae. There is no tricuspid valve vegetation. Aortic Valve The aortic valve is normal in structure and function. The aortic valve is trileaflet. There is no aortic stenosis. There is no aortic insufficiency. Pulmonic Valve The pulmonic valve is normal in structure and function. There is no pulmonic valvular regurgitation. Vessels The aortic root is normal size. normal size ascending thoracic aorta (2.4cm) with no dissection flap or atheroma. Conclusion A 2D transesophageal echocardiogram with color flow Doppler was performed. 1)Normal LV size and systolic function with LVEF 60%. 2)Normal size atria with no ASD or PFO and negative IV bubble study for intracardiac shunting. 3)Normal trileaflet aortic valve with no , AI or vegetations. 4)Normal MV with no vegetations or prolapse. Trivial MR noted. 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 No vegetations noted. Trivial TR noted. 6)Normal pulmonary valve with no vegetations, PS or PI. 7)No clots in any of four cardiac chambers or LA appendage. PW doppler in SKYLAR 50cm/sec which is normal. 8)Normal size ascending thoracic aorta (2.4cm) with no dissection flap or atheroma. Final Reading Physician: Steve Hartman electronically signed on 11/24/2016 11:44 AM Ordering Physician: Steve Hartman Performed By: Steve Hartman
== END 2016-11-24 10:11 | disposition home or self-care (01) ==
LOC: FCATH 07:03
PROVIDERS: ATTEND Internal Medicine Cardiovascular Disease
PROC: B24BZZ4 Ultrasonography of Heart with Aorta, Transesophageal (ICD-10-PCS; principal; 2016-11-24)
DX: R93.1 Abnormal findings on diagnostic imaging of heart and coronary circulation (principal)
CPT/HCPCS: J1642; J2001; J2704